=== PATIENT | female | born 1970 | race Caucasian/White ===

== ENCOUNTER → 2020-05-06 | Outpatient (CLI) | payer BC ==
[~2020-05-06] MED LIST: ACET500C OR; IBUP800T OR; PRENTAB8 PO
--- NOTE | 2020-05-06 09:53 | REP ---
INDICATION: PAIN IN LEFT SHOULDER COMPARISON: None. TECHNIQUE: Internal rotation, external rotation, and Y view. FINDINGS: No acute fracture or dislocation. The acromioclavicular and glenohumeral joints are intact. Small smoothly calcified densities adjacent to the humeral greater tuberosity consistent with calcific tendinopathy. No further significant degenerative changes appreciated. IMPRESSION: Findings suggesting calcific tendinopathy. <Electronically signed by Hari Yee > 05/06/20 [id number]
== END ==
LOC: M RAD 09:34
PROVIDERS: ATTEND Physician Assistant Medical
DX: M25.512 Pain in left shoulder (principal)

== ENCOUNTER 2020-07-18 19:58 | Emergency (ER) | payer OTHER, BC ==
[~2020-07-18] VITALS: Ht 154.9 cm; Wt 95.1 kg
[2020-07-18] MEDS ORDERED: IBUP-1114 PO (20:26)
[2020-07-18] MEDS ORDERED: METOCLOPRAMIDE 10 MG TAB PO ONE (23:40)
[2020-07-18] MEDS ORDERED: ACETAMINOPHEN 500 MG TAB PO ONE (23:40)
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
[2020-07-19 00:48] VITALS: BP 144/71
== END 2020-07-19 00:50 | disposition home or self-care (01) ==
LOC: M ED 19:58
DX: Z04.1 Encounter for examination and observation following transport accident (principal); R51.9 Headache, unspecified

== ENCOUNTER → 2021-02-16 | Outpatient (CLI) | payer BC ==
[~2021-02-16] MED LIST changes: +IBUP-1114 PO
--- NOTE | 2021-02-16 16:07 | REP ---
INDICATION: SCREEN MAMMO FOR MALIGNANT NEOPLASM OF BRST. COMPARISON: None, baseline. TECHNIQUE: MLO and CC views bilateral breasts. Implant displaced views bilaterally with tomosynthesis. FINDINGS: Mild scattered fibroglandular tissue is present bilaterally. A smoothly marginated 7 mm nodule is visualized in the upper outer quadrant of the left breast. No other mass, architectural distortion or clustered microcalcifications are seen bilaterally. Bilateral breast implants are grossly intact. The Volpara volumetric breast density pattern is C. IMPRESSION: BIRADS/ACR category 0, incomplete. There is a 7 mm smoothly marginated nodule in the upper outer quadrant of the left breast. Recommend spot compression views and ultrasound to further evaluate. This patient's Tyrer-Cuzick lifetime breast cancer risk assessment score is 8.2%. This mammogram was interpreted with the aid of an FDA-approved computer-aided detection system. The patient states she had a clinical breast exam in November 2020. The patient letter being requested is M0. RECOMMENDATION: Recommend spot compression views and ultrasound left breast as discussed in detail above. <Electronically signed by Damine Torres > 02/16/21 [id number]
== END ==
LOC: M WHC 14:56
PROVIDERS: ATTEND Advanced Practice Midwife
DX: R92.2 Inconclusive mammogram (principal)

== ENCOUNTER → 2021-03-14 | Outpatient (CLI) | payer BC ==
--- NOTE | 2021-03-14 15:59 | REP ---
INDICATION: LEFT BREAST ADD VIEWS. Focal asymmetry, left breast. COMPARISON: Screening mammogram, 02/16/2021. TECHNIQUE: 2D and 3D spot compression images of the left breast were obtained in the CC and MLO orientations. Targeted left breast ultrasound was performed. FINDINGS: In the middle 3rd of the left breast, above and lateral to the nipple, in the upper outer quadrant, 6-8 cm from the nipple, there is an oval, circumscribed, isodense mass measuring 7 mm in diameter. Left breast ultrasound: 2 o'clock, 6 cm from the nipple, 7 x 4 mm, intramammary lymph node. IMPRESSION: BIRADS/ACR : Category 2: Benign finding. The patient letter being requested is M2. RECOMMENDATION: Repeat screening mammography recommended 1 year (for women over 40). <Electronically signed by Owen Roa > 03/14/21 [id number]
== END ==
LOC: M WHC 08:43
PROVIDERS: ATTEND Advanced Practice Midwife
DX: R92.2 Inconclusive mammogram (principal); Z12.31 Encounter for screening mammogram for malignant neoplasm of breast
CPT/HCPCS: 76642; 77065; G0279

== ENCOUNTER → 2021-06-29 | Outpatient (REF) | payer BC | LOC: M LAB REF 12:04 | PROVIDERS: ATTEND Physician Assistant | DX: J02.9 Acute pharyngitis, unspecified (principal) ==

== ENCOUNTER → 2022-02-19 | Outpatient (CLI) | payer BC | LOC: M WHC 08:52 | PROVIDERS: ATTEND Obstetrics & Gynecology | DX: Z12.31 Encounter for screening mammogram for malignant neoplasm of breast (principal); Z13.820 Encounter for screening for osteoporosis; M85.88 Other specified disorders of bone density and structure, other site; M85.851 Other specified disorders of bone density and structure, right thigh; M85.852 Other specified disorders of bone density and structure, left thigh ==

== ENCOUNTER → 2022-12-04 | Outpatient (CLI) | payer BC ==
[2022-12-04 15:06] LABS: ALBUMIN 3.9 G/DL (3.2-5.2); ALKALINE PHOSPHATASE 116 U/L (46-116); ALT/SGPT 42 U/L (7.0-40); AST/SGOT 18 U/L (<34); BILIRUBIN,TOTAL 0.4 MG/DL (0.3-1.2); BLOOD UREA NITROGEN 10 MG/DL (9-23); CALCIUM LEVEL 9.3 MG/DL (8.5-10.1); CARBON DIOXIDE LEVEL 26 MMOL/L (20-31); CHLORIDE LEVEL 107 MMOL/L (98-107); CHOLESTEROL LEVEL 224 MG/DL (<200); CHOLESTEROL RISK RATIO 4.05 (<5); CREATININE FOR GFR 0.63 MG/DL (0.55-1.30); GLOMERULAR FILTRATION RATE > 60.0 (>51); GLUCOSE, FASTING 95 MG/DL (60-100); HDL CHOLESTEROL 55.2 MG/DL (>40); LDL CHOLESTEROL 137.6 MG/DL (<100); NON-HDL-C 168.8 MG/DL; POTASSIUM SERUM 4.1 MMOL/L (3.5-5.1); SODIUM LEVEL 143 MMOL/L (136-145); TOTAL PROTEIN 6.5 G/DL (5.7-8.2); TRIGLYCERIDES LEVEL 156 MG/DL (<150)
[2022-12-04 15:08] LABS: BASO # 0.1 10^3/uL (0.0-0.2); EOS # 0.1 10^3/uL (0.0-0.5); EOS % 1.9 % (0.0-3.0); FREE T4 1.07 NG/DL (0.89-1.76); HEMATOCRIT 42.6 % (36.0-47.0); LYMPH # 2.5 10^3/uL (1.5-5.0); LYMPH % 39.5 % (24.0-44.0); MEAN CORPUSCULAR HEMOGLOBIN 28.5 pg (27.0-33.0); MEAN CORPUSCULAR HGB CONC 32.9 g/dl (32.0-36.5); MEAN CORPUSCULAR VOLUME 86.6 fl (80.0-96.0); MONO # 0.5 10^3/uL (0.0-0.8); MONO % 8.1 % (2.0-8.0); NEUTROPHILS # 3.1 10^3/uL (1.5-8.5); NEUTROPHILS % 49.3 % (36.0-66.0); PLATELET COUNT, AUTOMATED 309 10^3/uL (150-450); RED BLOOD COUNT 4.92 10^6/uL (4.00-5.40); THYROID STIMULATING HORMONE 1.888 uIU/ML (0.55-4.78); WHITE BLOOD COUNT 6.2 10^3/uL (4.0-10.0)
== END ==
LOC: M PLALAB 08:58
PROVIDERS: ATTEND Family Medicine
DX: R63.5 Abnormal weight gain (principal); G47.19 Other hypersomnia

== ENCOUNTER → 2023-01-15 | Outpatient (CLI) | payer BC | LOC: M SLEEP HO 10:57 | PROVIDERS: ATTEND Family Medicine | DX: R06.83 Snoring (principal) ==

== ENCOUNTER → 2023-07-12 | Outpatient (CLI) | payer BC ==
[2023-07-12 14:39] LABS: HEMATOCRIT 42.6 % (36.0-47.0); HEMOGLOBIN 14.3 g/dl (12.0-15.5); MEAN CORPUSCULAR HEMOGLOBIN 28.4 pg (27.0-33.0); MEAN CORPUSCULAR HGB CONC 33.6 g/dl (32.0-36.5); MEAN CORPUSCULAR VOLUME 84.7 fl (80.0-96.0); PLATELET COUNT, AUTOMATED 322 10^3/uL (150-450); RED BLOOD COUNT 5.03 10^6/uL (4.00-5.40); WHITE BLOOD COUNT 6.1 10^3/uL (4.0-10.0)
[2023-07-12 15:07] LABS: IRON (FE) 98 UG/DL (50-170); TOTAL IRON BINDING CAPACITY 316 UG/DL (250-425)
[2023-07-12 15:08] LABS: ALBUMIN 4.2 G/DL (3.2-5.2); ALKALINE PHOSPHATASE 117 U/L (46-116); ALT/SGPT 63 U/L (7.0-40); AST/SGOT 24 U/L (<34); BILIRUBIN,TOTAL 0.8 MG/DL (0.3-1.2); BLOOD UREA NITROGEN 9 MG/DL (9-23); CALCIUM LEVEL 9.3 MG/DL (8.5-10.1); CARBON DIOXIDE LEVEL 28 MMOL/L (20-31); CHLORIDE LEVEL 103 MMOL/L (98-107); CHOLESTEROL LEVEL 251 MG/DL (<200); CREATININE FOR GFR 0.66 MG/DL (0.55-1.30); GLOMERULAR FILTRATION RATE > 60.0 (>51); GLUCOSE, FASTING 87 MG/DL (60-100); HDL CHOLESTEROL 58.3 MG/DL (>40); LDL CHOLESTEROL 155.9 MG/DL (<100); NON-HDL-C 192.7 MG/DL; POTASSIUM SERUM 3.9 MMOL/L (3.5-5.1); SODIUM LEVEL 139 MMOL/L (136-145); TOTAL PROTEIN 6.7 G/DL (5.7-8.2); TRIGLYCERIDES LEVEL 184 MG/DL (<150)
[2023-07-12 15:09] LABS: FERRITIN 104.1 NG/ML (7.3-270.7); FOLATE 5.92 NG/ML (>5.4); TOTAL 25(OH) VITAMIN D 23.2 NG/ML (20.0-100.0)
[2023-07-12 15:40] LABS: HEMOGLOBIN A1c 5.1 % (4.0-6.0)
== END ==
LOC: M RAD 13:30
PROVIDERS: ATTEND Physician Assistant
DX: E66.01 Morbid (severe) obesity due to excess calories (principal); R94.31 Abnormal electrocardiogram [ECG] [EKG]

== ENCOUNTER → 2024-03-27 | Outpatient (CLI) | payer BC ==
[2024-03-27 10:27] LABS: HEMATOCRIT 41.6 % (36.0-47.0); HEMOGLOBIN 13.9 g/dl (12.0-15.5); MEAN CORPUSCULAR HEMOGLOBIN 28.8 pg (27.0-33.0); MEAN CORPUSCULAR HGB CONC 33.4 g/dl (32.0-36.5); MEAN CORPUSCULAR VOLUME 86.1 fl (80.0-96.0); PLATELET COUNT, AUTOMATED 330 10^3/uL (150-450); RED BLOOD COUNT 4.83 10^6/uL (4.00-5.40); WHITE BLOOD COUNT 6.5 10^3/uL (4.0-10.0)
[2024-03-27 10:34] LABS: ALBUMIN 3.6 G/DL (3.2-5.2); ALKALINE PHOSPHATASE 103 U/L (35-104); ALT/SGPT 38 U/L (7.0-40); AST/SGOT 19 U/L (<34); BILIRUBIN,TOTAL 0.5 MG/DL (0.3-1.2); BLOOD UREA NITROGEN 17 MG/DL (9-23); CALCIUM LEVEL 9.8 MG/DL (8.5-10.1); CARBON DIOXIDE LEVEL 26 MMOL/L (20-31); CHLORIDE LEVEL 109 MMOL/L (98-107); CREATININE FOR GFR 0.61 MG/DL (0.55-1.30); GLOMERULAR FILTRATION RATE > 60.0 (>51); GLUCOSE, FASTING 88 MG/DL (60-100); IRON (FE) 94 UG/DL (50-170); MAGNESIUM LEVEL 1.8 MG/DL (1.8-2.4); PERCENT SATURATION 30.8 % (13.2-45.0); PHOSPHORUS LEVEL 3.5 MG/DL (2.5-4.9); POTASSIUM SERUM 3.9 MMOL/L (3.5-5.1); SODIUM LEVEL 144 MMOL/L (136-145); TOTAL IRON BINDING CAPACITY 305 UG/DL (250-425); TOTAL PROTEIN 6.5 G/DL (5.7-8.2)
[2024-03-27 10:35] LABS: FERRITIN 91.7 NG/ML (7.3-270.7); THYROID STIMULATING HORMONE 1.034 uIU/ML (0.55-4.78); TOTAL 25(OH) VITAMIN D 30.5 NG/ML (20.0-100.0)
[2024-03-27 10:36] LABS: FOLATE 12.1 NG/ML (>5.4); VITAMIN B12 LEVEL 380 PG/ML (211-911)
[2024-03-27 11:03] LABS: HEMOGLOBIN A1c 5.2 % (4.0-6.0)
== END ==
LOC: M PLALAB 07:56
PROVIDERS: ATTEND Physician Assistant
DX: Z01.818 Encounter for other preprocedural examination (principal)

== ENCOUNTER 2024-08-07 12:26 | Inpatient (IN) | payer BC ==
[~2024-08-07] VITALS: Ht 154.9 cm; Wt 79.7 kg
[2024-08-07] MEDS: METOCLOPRAMIDE INJ 10MG/2ML VIAL IV ONE (12:55)
[2024-08-07] MEDS: MORPHINE 4 MG/ML 1ML VIAL IV PRN (13:21)
[2024-08-07] MEDS ORDERED: ISOVUE-370 76% 100ML VIAL As Ordered ONE (13:44)
[2024-08-07 13:47] LABS: BASO % 0.2 % (0.0-1.0); HEMATOCRIT 42.6 % (36.0-47.0); HEMOGLOBIN 13.9 g/dl (12.0-15.5); LYMPH # 0.9 10^3/uL (1.5-5.0); MEAN CORPUSCULAR HEMOGLOBIN 28.3 pg (27.0-33.0); MEAN CORPUSCULAR HGB CONC 32.6 g/dl (32.0-36.5); MEAN CORPUSCULAR VOLUME 86.6 fl (80.0-96.0); MONO # 0.5 10^3/uL (0.0-0.8); NEUTROPHILS # 11.6 10^3/uL (1.5-8.5); NEUTROPHILS % 88.4 % (36.0-66.0); PLATELET COUNT, AUTOMATED 292 10^3/uL (150-450); RED BLOOD COUNT 4.92 10^6/uL (4.00-5.40); WHITE BLOOD COUNT 13.1 10^3/uL (4.0-10.0)
[2024-08-07 13:55] LABS: LIPASE 29 U/L (12-53)
[2024-08-07 13:57] LABS: ALBUMIN 3.8 G/DL (3.2-5.2); ALKALINE PHOSPHATASE 141 U/L (35-104); ALT/SGPT 55 U/L (7.0-40); AST/SGOT 34 U/L (<34); BILIRUBIN,DIRECT 0.5 MG/DL (<0.4); TOTAL PROTEIN 6.4 G/DL (5.7-8.2)
[2024-08-07] MEDS ORDERED: THERTAB52 PO (15:03)
[2024-08-07] MEDS ORDERED: D-50TAB PO (15:03)
[2024-08-07] MEDS ORDERED: VITATAB73 PO (15:03)
[2024-08-07] MEDS ORDERED: OYST1TAB PO (15:03)
[2024-08-07] MEDS ORDERED: OMEP40CA5 PO (15:03)
[2024-08-07] MEDS ORDERED: STOO100C30 PO (15:03)
[2024-08-07] MEDS: PIPERACILLIN/TAZOBACTAM SOD 3.375 GM in DEXTROSE 5% (D5W) ADV/MINI-BAG 50 ML IV ONE (15:03)
[2024-08-07] MEDS: NS (Normal Saline) 0.9% 1,000 ML IV SCH (15:04)
[2024-08-07] MEDS ORDERED: HOME MED LIST COMPLETE! XX SCH (15:05)
[2024-08-07] MEDS ORDERED: MOM 30ML SUSPENSION UDC PO PRN (15:15)
[2024-08-07] MEDS ORDERED: MAALOX 30 ML SUSP *UDC PO PRN (15:15)
[2024-08-07 16:11] LABS: BLOOD UREA NITROGEN 6 MG/DL (9-23); C REACTIVE PROTEIN QUANTITATIV 8.94 MG/DL (<1.0); CALCIUM LEVEL 8.9 MG/DL (8.5-10.1); CARBON DIOXIDE LEVEL 18 MMOL/L (20-31); CHLORIDE LEVEL 102 MMOL/L (98-107); GLOMERULAR FILTRATION RATE > 90.0 (>51); GLUCOSE, FASTING 156 MG/DL (60-100); MAGNESIUM LEVEL 1.7 MG/DL (1.8-2.4); POTASSIUM SERUM 3.9 MMOL/L (3.5-5.1); SODIUM LEVEL 139 MMOL/L (136-145)
[2024-08-07 16:30] VITALS: BP 115/63; TEMP 97.3; O2SAT 97
[2024-08-07] MEDS ORDERED: HYDROMORPHONE HCL 0.5 MG/ 0.5 ML SYRINGE IV PRN (17:40)
[2024-08-07] MEDS ORDERED: ONDANSETRON 4MG 2ML VIAL IV PRN (17:40)
[2024-08-07] MEDS ORDERED: oxyCODONE 5MG TAB PO PRN (17:40)
[2024-08-07] MEDS ORDERED: fentaNYL 100 MCG/2 ML INJECTION IV PRN (17:40)
[2024-08-07] MEDS ORDERED: fentaNYL 100 MCG/2 ML INJECTION As Ordered ONE (18:23)
[2024-08-07] MEDS ORDERED: ONDANSETRON 4MG 2ML VIAL As Ordered ONE (18:23)
[2024-08-07] MEDS ORDERED: LIDOCAINE 2% 100MG/5ML SDV (FOR ANES.) As Ordered ONE (18:23)
[2024-08-07] MEDS ORDERED: MIDAZOLAM INJ 2MG/2ML VIAL As Ordered ONE (18:23)
[2024-08-07] MEDS ORDERED: propofoL 200 MG/20 ML VIAL As Ordered ONE (18:23)
[2024-08-07] MEDS ORDERED: ROCURONIUM BROMIDE 50MG/5ML VIAL As Ordered ONE (18:23)
[2024-08-07] MEDS ORDERED: SUGAMMADEX SODIUM 500 MG/5 ML VIAL (BRIDION) As Ordered ONE (19:06)
[2024-08-07] MEDS ORDERED: KETOROLAC 30 MG/ML 1ML VIAL As Ordered ONE (19:06)
[2024-08-07 21:19] VITALS: BP 116/71; TEMP 97.9; O2SAT 93
[2024-08-07] MEDS: PIPERACILLIN/TAZOBACTAM SOD 4.5 GM in DEXTROSE 5% (D5W) ADV/MINI-BAG 50 ML IV SCH (21:31)
[2024-08-07 21:49] VITALS: BP 113/68; TEMP 97.6; O2SAT 95
[2024-08-07 22:18] VITALS: BP 104/58; TEMP 97.3; O2SAT 94
[2024-08-07] MEDS: ONDANSETRON 4MG 2ML VIAL IV PRN (22:24)
[2024-08-07 23:19] VITALS: BP 103/58; TEMP 97.2; O2SAT 92
[2024-08-08] VITALS (7 sets, daily range): BP systolic 94–110; BP diastolic 54–69; TEMP 97.2–97.9; O2SAT 92–97
[2024-08-08] MEDS: ACETAMINOPHEN 325 MG TAB PO PRN (07:29)
[2024-08-08] MEDS: SODIUM BICARBONATE 75 MEQ in NS 0.45% 1,000 ML IV SCH (07:53)
[2024-08-08] MEDS: ENOXAPARIN 40MG/0.4ML SYRINGE (J1650 PER 10MG) SC SCH (07:53)
[2024-08-08 08:29] LABS: BASO % 0.1 % (0.0-1.0); EOS % 0.1 % (0.0-3.0); HEMATOCRIT 36.2 % (36.0-47.0); LYMPH # 1.7 10^3/uL (1.5-5.0); LYMPH % 16.6 % (24.0-44.0); MEAN CORPUSCULAR HGB CONC 32.9 g/dl (32.0-36.5); MEAN CORPUSCULAR VOLUME 88.1 fl (80.0-96.0); MONO # 0.8 10^3/uL (0.0-0.8); MONO % 7.9 % (2.0-8.0); NEUTROPHILS # 7.6 10^3/uL (1.5-8.5); PLATELET COUNT, AUTOMATED 276 10^3/uL (150-450); RED BLOOD COUNT 4.11 10^6/uL (4.00-5.40); WHITE BLOOD COUNT 10.1 10^3/uL (4.0-10.0)
[2024-08-08 08:31] LABS: HEMOGLOBIN 11.9 g/dl (12.0-15.5)
[2024-08-08 08:50] LABS: C REACTIVE PROTEIN QUANTITATIV 8.38 MG/DL (<1.0)
[2024-08-08 08:51] LABS: BLOOD UREA NITROGEN 7 MG/DL (9-23); CARBON DIOXIDE LEVEL 22 MMOL/L (20-31); CHLORIDE LEVEL 106 MMOL/L (98-107); CREATININE FOR GFR 0.54 MG/DL (0.55-1.30); GLOMERULAR FILTRATION RATE > 90.0 (>51); GLUCOSE, FASTING 117 MG/DL (60-100); MAGNESIUM LEVEL 1.8 MG/DL (1.8-2.4); POTASSIUM SERUM 4.2 MMOL/L (3.5-5.1); SODIUM LEVEL 141 MMOL/L (136-145)
[2024-08-08] MEDS: VITAMIN B COMPLEX/VIT C CAP PO SCH (09:00)
[2024-08-08 09:06] LABS: HEMOGLOBIN A1c 4.7 % (4.0-6.0)
[2024-08-08] MEDS: OMEPRAZOLE 20MG CAP PO SCH (09:39)
[2024-08-08] MEDS: VITAMIN D 1,000 INTERNATIONAL UNITS TABLET PO SCH (09:39)
[2024-08-08] MEDS: SENOKOT S TAB PO SCH (09:40)
[2024-08-08] MEDS: MULTIVITAMINS/MINERALS THERAP 1 TAB PO SCH (09:40)
[2024-08-08] MEDS ORDERED: CEFD1CAP9 PO (12:12)
[2024-08-08] MEDS ORDERED: METR-265 PO (12:12)
[2024-08-08] MEDS ORDERED: OYSTER SHELL CALCIUM 500 MG TAB PO SCH (21:00)
== END 2024-08-08 12:40 | disposition home or self-care (01) | DRG 225 ==
LOC: EDBD 12:26 → M ED 12:26 → M ED INP 15:47 → M MS5PR 16:50
PROVIDERS: ADMIT Student in an Organized Health Care Education/Training Program; ATTEND Student in an Organized Health Care Education/Training Program
PROC: 8E0W4CZ Robotic Assisted Procedure of Trunk Region, Percutaneous Endoscopic Approach (ICD-10-PCS; 2024-08-07)
PROC: 0DTJ4ZZ Resection of Appendix, Percutaneous Endoscopic Approach (ICD-10-PCS; principal; 2024-08-07 19:18)
DX: K35.80 Unspecified acute appendicitis (principal); E66.01 Morbid (severe) obesity due to excess calories; K64.8 Other hemorrhoids; K59.00 Constipation, unspecified; Z98.84 Bariatric surgery status; Z79.899 Other long term (current) drug therapy

== ENCOUNTER → 2025-01-15 | Outpatient (CLI) | payer BC ==
[~2025-01-15] MED LIST changes: +CEFD1CAP9 PO; +D-50TAB PO; +METR-265 PO; +OMEP40CA5 PO; +OYST1TAB PO; +STOO100C30 PO; +THERTAB52 PO; +VITATAB73 PO
[2025-01-15 11:29] LABS: PLATELET COUNT, AUTOMATED 278 10^3/uL (150-450)
[2025-01-15 11:32] LABS: ALT/SGPT 137 U/L (7.0-40); AST/SGOT 75 U/L (<34); CALCIUM LEVEL 9.4 MG/DL (8.5-10.1); CARBON DIOXIDE LEVEL 29 MMOL/L (20-31); CHLORIDE LEVEL 104 MMOL/L (98-107); CREATININE FOR GFR 0.74 MG/DL (0.55-1.30); GLOMERULAR FILTRATION RATE > 90.0 (>51); IRON (FE) 130 UG/DL (50-170); PERCENT SATURATION 44.2 % (13.2-45.0); POTASSIUM SERUM 4.5 MMOL/L (3.5-5.1); SODIUM LEVEL 142 MMOL/L (136-145)
[2025-01-15 11:34] LABS: TOTAL 25(OH) VITAMIN D 73.6 NG/ML (20.0-100.0)
[2025-01-15 11:50] LABS: VITAMIN B12 LEVEL 460 PG/ML (211-911)
== END ==
LOC: M PLALAB 08:25
PROVIDERS: ATTEND Surgery
DX: K91.2 Postsurgical malabsorption, not elsewhere classified (principal)